=== PATIENT | female | born 1955 | race African-American/Black ===

== ENCOUNTER → 2018-11-23 | Outpatient (CLI) | payer MEDICARE, OTHER ==
[~2018-11-23] MED LIST: ASPI-650 PO; ATOR40TA21 PO; CHOL5000 PO; DABI150C PO; GLIM4TAB PO; GUAI118L53 PO; LORA-441; LOSA100T15 PO; LOSA50TA2 PO; METF500T24 PO; METO-429 PO; REPA2TAB23 PO
== END | disposition home or self-care (01) ==
LOC: VAS 15:16
PROVIDERS: ATTEND Internal Medicine
DX: R60.0 Localized edema (principal); M79.89 Other specified soft tissue disorders
CPT/HCPCS: 93970